=== PATIENT | female | born 1990 | race Caucasian/White ===

== ENCOUNTER 2017-11-30 08:45 | Outpatient (CLI) | payer BC ==
--- NOTE | 2017-11-30 11:54 | ULT ---
RIGHT UPPER QUADRANT ULTRASOUND: 11/30/2017 HISTORY: Epigastric pain. COMPARISON: None. TECHNIQUE: Multiplanar mooney-scale sonographic imaging of the right upper quadrant obtained. FINDINGS: The imaged pancreas is grossly unremarkable, partially obscured by bowel gas. No focal liver lesion or intrahepatic biliary dilatation is noted. The sonographic Martinez sign is negative. No gallbladder wall thickening or pericholecystic fluid. N o gallstones are noted. The common bile duct measures 3 mm, within normal limits. The right kidney measures 9.9 cm in craniocaudal dimension and demonstrates no stone, hydronephrosis, or mass lesion. IMPRESSION: No sonographic evidence of cholelithiasis, cholecystitis, or biliary dilatation. POS: [facility]
== END 2017-11-30 08:46 | disposition home or self-care (01) ==
LOC: ULT 08:45
PROVIDERS: ATTEND Internal Medicine Gastroenterology
DX: K21.9 Gastro-esophageal reflux disease without esophagitis (principal); R19.4 Change in bowel habit
CPT/HCPCS: 76705